=== PATIENT | male | born 1970 | race Caucasian/White ===

== ENCOUNTER 2016-11-28 15:15 | Emergency (ER) | payer BC ==
[~2016-11-28] VITALS: Ht 180.3 cm; Wt 109.4 kg
[2016-11-28 16:07] LABS: HEMATOCRIT 45.6 % (38.0-50.0); MCH 30.2 PG (29.0-34.0); MCHC 33.3 G/DL (30.0-36.0); MCV 90.7 FL (86-99); MEAN PLAT.VOLUME 10.7 uM^3 (9.0-12.4); PLATELET COUNT 227 K/uL (156-360); RBC DIS.WIDTH-CV 12.1 % (11.8-14.6); RBC DIS.WIDTH-SD 40.1 % (39-53); RED BLOOD COUNT 5.03 M/uL (4.00-5.50); WHITE BLOOD COUNT 6.6 K/uL (4.1-10.2)
[2016-11-28 16:17] LABS: CHLORIDE 106 mEq/L (99-109); POTASSIUM 3.7 mEq/L (3.7-5.4); SODIUM 141 mEq/L (136-147)
[2016-11-28 16:18] LABS: GLUCOSE 89 mg/dL (70-99)
[2016-11-28 16:20] LABS: ANION GAP 12 MEQ/L (2-14)
[2016-11-28 16:22] LABS: GFR ESTIMATE (CALCULATED) > 59 mL/min/
[2016-11-28 16:23] LABS: UREA NITROGEN (BUN) 15 mg/dL (9-23)
[2016-11-28 16:29] LABS: TROP-I INTERPRETATION NEGATIVE; TROPONIN-I < 0.01 ng/mL (0.0-0.30)
[2016-11-28 18:24] LABS: TROP-I INTERPRETATION NEGATIVE; TROPONIN-I < 0.01 ng/mL (0.0-0.30)
[2016-11-28 18:57] VITALS: BP 146/94
== END 2016-11-28 18:58 | disposition home or self-care (01) ==
LOC: EXP 15:15 → EME 15:15 → EXP 18:58
PROVIDERS: Physician Assistant
DX: R07.9 Chest pain, unspecified (principal); Z96.641 Presence of right artificial hip joint
CPT/HCPCS: 71020; 80048; 84484; 85027; 93005; 99281; 99284